=== PATIENT | female | born 1940 | race Caucasian/White ===

== ENCOUNTER 2018-11-27 23:24 | Inpatient (IN) | payer MEDICARE, BC, OTHER | END 2018-11-29 12:50 | disposition home or self-care (01) | LOC: WEST WING 23:24 → TELE-WESTW 23:50 | PROC: 0JH606Z Insertion of Pacemaker, Dual Chamber into Chest Subcutaneous Tissue and Fascia, Open Approach (ICD-10-PCS; principal; ~2018-11-27) | PROC: 02H63JZ Insertion of Pacemaker Lead into Right Atrium, Percutaneous Approach (ICD-10-PCS; ~2018-11-27) | PROC: 3E0102A Introduction of Anti-Infective Envelope into Subcutaneous Tissue, Open Approach (ICD-10-PCS; ~2018-11-27) | DX: I48.0 Paroxysmal atrial fibrillation (principal); I49.5 Sick sinus syndrome; R00.1 Bradycardia, unspecified; E78.5 Hyperlipidemia, unspecified; I10 Essential (primary) hypertension; E03.9 Hypothyroidism, unspecified ==

== ENCOUNTER → 2019-06-23 | Outpatient (CLI) | payer MEDICARE, BC ==
[~2019-06-23] VITALS: Ht 170.2 cm; Wt 89.8 kg
[~2019-06-23] MED LIST: ADENOSINE 75 MG in GIVE UN-DILUTED 0 ML IV ONE; ADENOSINE 90 MG/30 ML INJ IV ONE; ASCO-22 PO; ASPI-543 PO; CALC500C3 PO; CHOL10006 PO; LEVO75TA6 PO; MULT-927 PO; NIFE1TAB36 PO; OMEG1CAP68 PO; PRAV20TA3 PO
== END | disposition home or self-care (01) ==
LOC: Rad HDHVI 08:19
PROVIDERS: ATTEND Internal Medicine Cardiovascular Disease
DX: I08.8 Other rheumatic multiple valve diseases (principal); I48.91 Unspecified atrial fibrillation; I47.1 Supraventricular tachycardia; I10 Essential (primary) hypertension; E78.00 Pure hypercholesterolemia, unspecified; R06.02 Shortness of breath; R42 Dizziness and giddiness; Z95.1 Presence of aortocoronary bypass graft
CPT/HCPCS: 78452; 93005; 93306; 96374; 96375; A9500; J0153; 93880

== ENCOUNTER → 2020-06-16 | Outpatient (CLI) | payer MEDICARE, BC ==
[~2020-06-16] MED LIST changes: -ADENOSINE 75 MG in GIVE UN-DILUTED 0 ML IV ONE; -ADENOSINE 90 MG/30 ML INJ IV ONE
== END | disposition home or self-care (01) ==
LOC: Rad HDHVI 13:03
PROVIDERS: ATTEND Internal Medicine Cardiovascular Disease
DX: I51.7 Cardiomegaly (principal); I20.9 Angina pectoris, unspecified
CPT/HCPCS: 93306

== ENCOUNTER → 2021-04-14 | Outpatient (CLI) | payer MEDICARE, BC | END | disposition home or self-care (01) | LOC: Rad HDHVI 13:00 | PROVIDERS: ATTEND Internal Medicine Cardiovascular Disease | DX: I67.82 Cerebral ischemia (principal); I67.2 Cerebral atherosclerosis; G31.89 Other specified degenerative diseases of nervous system; R41.0 Disorientation, unspecified | CPT/HCPCS: 70450 ==

== ENCOUNTER → 2021-04-21 | Outpatient (CLI) | payer MEDICARE, BC | END | disposition home or self-care (01) | LOC: Rad HDHVI 14:31 | PROVIDERS: ATTEND Internal Medicine Cardiovascular Disease | DX: I08.1 Rheumatic disorders of both mitral and tricuspid valves (principal); R00.2 Palpitations; R07.89 Other chest pain | CPT/HCPCS: 93306 ==

== ENCOUNTER 2021-07-20 07:51 | Day surgery (SDC) | payer MEDICARE, BC ==
[~2021-07-20] VITALS: Ht 170.2 cm; Wt 94.3 kg
[~2021-07-20 07:51] MED LIST changes: -ASCO-22 PO; -ASPI-543 PO; +BIOF500T4 PO; +BIOT10004 PO; -CALC500C3 PO; +CHOL100040 PO; -CHOL10006 PO; +CYAN500L3 PO; -NIFE1TAB36 PO; +PANT40TA2 PO; +RIVA20TA PO; +SOTA80TA PO; +UBIQ100C6 PO; +[UNRECOGNIZED DRUG - CODE] PO
[2021-07-20] MEDS ORDERED: IOHEXOL 350 MG/ML 100ML IJ ONE ×2 (10:29→12:17)
[2021-07-20] MEDS ORDERED: SODIUM CHL 0.9% 0 ML ONE (10:29)
[2021-07-20] MEDS ORDERED: LIDOCAINE 2%HCL (LOCAL ANESTH.) INJ 20ML MDV ONE (10:29)
[2021-07-20] MEDS ORDERED: ANGIOMAX 250 MG VIAL IV ONE ×2 (10:29→12:10)
[2021-07-20] MEDS ORDERED: fentaNYL CITRATE 100 MCG/2 ML VL ONE (10:29)
[2021-07-20] MEDS ORDERED: MIDAZOLAM HCL 2MG/2ML 2ml VIAL (1mg/ml) ONE (10:29)
== END 2021-07-20 15:15 | disposition home or self-care (01) ==
LOC: CATH 07:51
PROVIDERS: ATTEND Internal Medicine Cardiovascular Disease
DX: R07.89 Other chest pain (principal); I49.5 Sick sinus syndrome; I11.9 Hypertensive heart disease without heart failure; E03.9 Hypothyroidism, unspecified; I48.0 Paroxysmal atrial fibrillation; Z95.0 Presence of cardiac pacemaker; Z90.710 Acquired absence of both cervix and uterus; Z88.0 Allergy status to penicillin; Z88.8 Allergy status to other drugs, medicaments and biological substances; Z20.822 Contact with and (suspected) exposure to COVID-19; Z80.42 Family history of malignant neoplasm of prostate; Z82.49 Family history of ischemic heart disease and other diseases of the circulatory system; Z80.8 Family history of malignant neoplasm of other organs or systems; Z82.61 Family history of arthritis; Z83.79 Family history of other diseases of the digestive system; Z79.890 Hormone replacement therapy
CPT/HCPCS: 75736; 93458; C1760; C1894; J1644; J2250; J3010; Q9967; U0003; 99152

== ENCOUNTER → 2022-03-09 | Outpatient (CLI) | payer MEDICARE, BC | END | disposition home or self-care (01) | LOC: Rad HDHVI 10:49 | PROVIDERS: ATTEND Internal Medicine Cardiovascular Disease | DX: I10 Essential (primary) hypertension (principal); R06.02 Shortness of breath | CPT/HCPCS: 93306 ==

== ENCOUNTER → 2022-07-05 | Outpatient (CLI) | payer MEDICARE, BC ==
[~2022-07-05] VITALS: Ht 170.2 cm; Wt 93.9 kg
[~2022-07-05] MED LIST changes: +ADENOSINE 79 MG in GIVE UN-DILUTED 0 ML IV ONE; +ADENOSINE 90 MG/30 ML INJ IV ONE
== END | disposition home or self-care (01) ==
LOC: Rad HDHVI 12:57
PROVIDERS: ATTEND Internal Medicine Cardiovascular Disease
DX: R00.2 Palpitations (principal); R06.02 Shortness of breath; R42 Dizziness and giddiness; I10 Essential (primary) hypertension; I48.91 Unspecified atrial fibrillation; E78.00 Pure hypercholesterolemia, unspecified; Z95.0 Presence of cardiac pacemaker
CPT/HCPCS: 78452; 93005; 96374; 96375; A9500; J0153

== ENCOUNTER → 2022-07-11 | Outpatient (CLI) | payer MEDICARE, BC ==
[~2022-07-11] MED LIST changes: -ADENOSINE 79 MG in GIVE UN-DILUTED 0 ML IV ONE; -ADENOSINE 90 MG/30 ML INJ IV ONE
== END | disposition home or self-care (01) ==
LOC: Rad HDHVI 09:55
PROVIDERS: ATTEND Internal Medicine Cardiovascular Disease
DX: I08.1 Rheumatic disorders of both mitral and tricuspid valves (principal); I11.9 Hypertensive heart disease without heart failure; R06.02 Shortness of breath
CPT/HCPCS: 93306

== ENCOUNTER → 2022-09-14 | Outpatient (CLI) | payer MEDICARE, BC ==
[~2022-09-14] VITALS: Ht 33 cm; Wt 0.5 kg
[~2022-09-14] MED LIST changes: +AMIODARONE HCL 150 MG in D5W 5% 100 ML IV ONE; +AMIODARONE HCL 200 MG TAB ONE; +AMIODARONE HCL 200 MG TAB PO ONE; -CYAN500L3 PO; +CYAN500L4 PO; +METOPROLOL SUCCINATE XL 50 MG TAB PO ONE
[2022-09-14 11:30] VITALS: BP 153/89
[2022-09-14 12:25] VITALS: BP 126/89
[2022-09-14 12:37] VITALS: BP 103/66
[2022-09-14 13:03] VITALS: BP 137/87
== END | disposition home or self-care (01) ==
LOC: CHF HDHVI 11:27
PROVIDERS: ATTEND Internal Medicine Cardiovascular Disease
DX: I48.0 Paroxysmal atrial fibrillation (principal); R00.0 Tachycardia, unspecified; R06.02 Shortness of breath; I11.9 Hypertensive heart disease without heart failure; E78.00 Pure hypercholesterolemia, unspecified; Z95.0 Presence of cardiac pacemaker
CPT/HCPCS: 96365; G0463; J0282; J7060

== ENCOUNTER 2022-12-13 06:45 | Day surgery (SDC) | payer MEDICARE, BC ==
[2022-12-11 13:56] LABS: Basophils # (auto) 0.1 10 ^3/uL (0-0.2); Eosinophils # (auto) 0.2 10 ^3/uL (0-0.8); Eosinophils % (auto) 2.4 % (0.0-7.0); Hematocrit 42.9 % (36.0-46.0); Hemoglobin 14.4 g/dL (12.2-16.2); Lymphocytes # (auto) 1.7 10 ^3/uL (0.4-5.4); Lymphocytes % (auto) 25.3 % (10.0-50.0); Mean Corpuscular Hemoglobin 31.9 pg (28.0-32.0); Mean Corpuscular Hgb Conc. 33.5 g/dL (32.0-36.0); Mean Corpuscular Volume 95.2 fL (80.0-100.0); Monocytes # (auto) 0.7 10 ^3/uL (0-1.3); Monocytes % (auto) 10.8 % (0.0-12.0); Neutrophils % (auto) 60.5 % (37.0-80.0); Red Blood Cells 4.51 10^6/uL (4.0-5.20); Red Cell Distribution Width 14.2 % (11.8-14.3); White Blood Cell 6.6 10^3/uL (4.4-10.8)
[2022-12-11 14:09] LABS: INR 1.14 (0.9-1.15); Partial Thromboplastin Time 28.9 SEC (24.5-34.5); Prothrombin Time 11.9 sec (9.3-11.8)
[2022-12-11 14:25] LABS: Chloride 105 mmol/L (98-107); Potassium 4.2 mmol/L (3.5-5.1); Sodium 138 mmol/L (136-145)
[2022-12-11 14:26] LABS: Anion Gap 3.3 (5-15); Carbon Dioxide 29.7 mmol/L (20-30)
[2022-12-11 14:27] LABS: Calcium 9.7 mg/dL (8.7-10.4)
[2022-12-11 14:31] LABS: BUN/Creatinine Ratio 15.7 (10.0-20.0); Blood Urea Nitrogen 13 mg/dL (9-23); Glucose 86 mg/dL (74-106)
[2022-12-13] VITALS (7 sets, daily range): BP systolic 126–145; BP diastolic 71–82; PULSE 70; RESP 12–16; O2SAT 90–95
[~2022-12-13] VITALS: Ht 167.6 cm; Wt 97.1 kg
[~2022-12-13 06:45] MED LIST changes: +AMIO200T33 PO; -AMIODARONE HCL 150 MG in D5W 5% 100 ML IV ONE; -AMIODARONE HCL 200 MG TAB ONE; -AMIODARONE HCL 200 MG TAB PO ONE; +DOCU-94 PO; +METO-289 PO; -METOPROLOL SUCCINATE XL 50 MG TAB PO ONE; +POM; -SOTA80TA PO
[2022-12-13] MEDS ORDERED: IOHEXOL 350 MG/ML 100ML IJ ONE ×2 (07:42→08:38)
[2022-12-13] MEDS ORDERED: LIDOCAINE 2%HCL (LOCAL ANESTH.) INJ 20ML MDV ONE (07:42)
[2022-12-13] MEDS ORDERED: MIDAZOLAM HCL 2MG/2ML 2ml VIAL (1mg/ml) ONE (08:05)
[2022-12-13] MEDS ORDERED: ANGIOMAX 250 MG VIAL IV ONE (08:05)
[2022-12-13] MEDS ORDERED: fentaNYL CITRATE 100 MCG/2 ML VL ONE (08:05)
[2022-12-13] MEDS ORDERED: SODIUM CHL 0.9% 50 ML ONE (08:05)
[2022-12-13] MEDS ORDERED: methylPREDNISolone SOD SUCC 125 MG/2 ML VL ONE (08:31)
[2022-12-13] MEDS ORDERED: NITROGLYCERIN 0.4MG/DOSE SPRAY 4.9GM ONE (08:33)
== END 2022-12-13 11:00 | disposition home or self-care (01) ==
LOC: CATH 06:45
PROVIDERS: ATTEND Internal Medicine Cardiovascular Disease
DX: R06.02 Shortness of breath (principal); R07.89 Other chest pain; I10 Essential (primary) hypertension; E78.5 Hyperlipidemia, unspecified; Z86.73 Personal history of transient ischemic attack (TIA), and cerebral infarction without residual deficits; I48.91 Unspecified atrial fibrillation; I49.5 Sick sinus syndrome; Z95.0 Presence of cardiac pacemaker; Z79.899 Other long term (current) drug therapy; Z79.01 Long term (current) use of anticoagulants; M19.90 Unspecified osteoarthritis, unspecified site
CPT/HCPCS: 36415; 80048; 85025; 85610; 85730; 93458; C1894; J1644; J2250; J2930; J3010; J7040; Q9967; 99152

== ENCOUNTER → 2023-06-24 | Outpatient (CLI) | payer MEDICARE, BC ==
[~2023-06-24] VITALS: Ht 170.2 cm; Wt 102.1 kg
[~2023-06-24] MED LIST changes: +ADENOSINE 86 MG in GIVE UN-DILUTED 0 ML IV ONE; +D5W 5% IV SCH; +DIPYRIDAMOLE (5MG/ML) 10 ML VIAL IV ONE; +DIPYRIDAMOLE IV SCH
== END | disposition home or self-care (01) ==
LOC: Rad HDHVI 08:12
PROVIDERS: ATTEND Internal Medicine Cardiovascular Disease
DX: R07.9 Chest pain, unspecified (principal); R00.2 Palpitations; I48.0 Paroxysmal atrial fibrillation; I10 Essential (primary) hypertension; I49.5 Sick sinus syndrome; I25.10 Atherosclerotic heart disease of native coronary artery without angina pectoris; E78.00 Pure hypercholesterolemia, unspecified; Z95.0 Presence of cardiac pacemaker
CPT/HCPCS: 78452; 93005; 96374; 96375; A9500; J1245

== ENCOUNTER → 2024-02-24 | Outpatient (CLI) | payer MEDICARE, BC ==
[~2024-02-24] MED LIST changes: -ADENOSINE 86 MG in GIVE UN-DILUTED 0 ML IV ONE; -D5W 5% IV SCH; -DIPYRIDAMOLE (5MG/ML) 10 ML VIAL IV ONE; -DIPYRIDAMOLE IV SCH
== END | disposition home or self-care (01) ==
LOC: Rad HDHVI 09:46
PROVIDERS: ATTEND Internal Medicine Cardiovascular Disease
DX: I10 Essential (primary) hypertension (principal)
CPT/HCPCS: 93880

== ENCOUNTER → 2024-05-29 | Outpatient (CLI) | payer MEDICARE, BC | END | disposition home or self-care (01) | LOC: Rad HDHVI 12:52 | PROVIDERS: ATTEND Internal Medicine Cardiovascular Disease | DX: I48.91 Unspecified atrial fibrillation (principal) | CPT/HCPCS: 93306 ==

== ENCOUNTER → 2024-07-09 | Outpatient (CLI) | payer MEDICARE, BC ==
[~2024-07-09] MED LIST changes: +ASCO500C49 PO; +CHOL25CH3 PO; +LEVO88TA4 PO; +MILK1000 PO; +SOTA120T39 PO; +VALS40TA2 PO; +[UNRECOGNIZED DRUG - CODE] PO; +[UNRECOGNIZED DRUG - CODE] PO
--- NOTE | 2024-07-09 12:01 | DVH ---
EXAM: XY CHEST TWO VIEWS ROUTINE CLINICAL HISTORY: Pain. COMPARISON: XY CHEST TWO VIEWS ROUTINE on DOS: 12/11/22, CXR2 on DOS: 07/17/21, CHEST TWO VIEWS ROUTINE on DOS: 07/17/21 TECHNIQUE: Frontal and lateral view of the chest was obtained FINDINGS: Lines and Tubes: Cardiac pacemaker projects over left chest wall. Lungs: No focal consolidation. Pleura: No effusion. No pneumothorax. Cardiomediastinal contours: Unremarkable. Bones: No acute osseous abnormality. Atherosclerotic vascular calcifications of the thoracic aorta ar e noted. IMPRESSION: No acute cardiopulmonary disease.
== END | disposition home or self-care (01) ==
LOC: Rad HDHVI 11:08
PROVIDERS: ATTEND Internal Medicine Cardiovascular Disease
DX: Z01.818 Encounter for other preprocedural examination (principal); I70.0 Atherosclerosis of aorta
CPT/HCPCS: 71046

== ENCOUNTER 2024-07-14 11:08 | Day surgery (SDC) | payer MEDICARE, BC ==
[2024-07-09 13:17] LABS: Basophils # (auto) 0 10 ^3/uL (0-0.2); Basophils % (auto) 0.7 % (0.0-2.0); Eosinophils # (auto) 0.2 10 ^3/uL (0-0.8); Eosinophils % (auto) 3.4 % (0.0-7.0); Hemoglobin 13.7 g/dL (12.2-16.2); Lymphocytes # (auto) 1.6 10 ^3/uL (0.4-5.4); Lymphocytes % (auto) 24.7 % (10.0-50.0); Mean Corpuscular Hgb Conc. 33.5 g/dL (32.0-36.0); Mean Corpuscular Volume 95.5 fL (80.0-100.0); Monocytes # (auto) 0.7 10 ^3/uL (0-1.3); Monocytes % (auto) 11.5 % (0.0-12.0); Neutrophils # (auto) 3.8 10 ^3/uL (1.6-8.6); Neutrophils % (auto) 59.7 % (37.0-80.0); Platelet Count (auto) 185 10^3/uL (140-450); Red Cell Distribution Width 14.2 % (11.8-14.3); White Blood Cell 6.3 10^3/uL (4.4-10.8)
[2024-07-09 13:29] LABS: Chloride 107 mmol/L (98-107); Potassium 4.4 mmol/L (3.5-5.1); Sodium 137 mmol/L (136-145)
[2024-07-09 13:30] LABS: Anion Gap 4 (5-15); Carbon Dioxide 26 mmol/L (20-31)
[2024-07-09 13:31] LABS: Calcium 10.2 mg/dL (8.7-10.4)
[2024-07-09 13:32] LABS: INR 1.21 (0.9-1.15); Partial Thromboplastin Time 29.6 SEC (24.5-34.5); Prothrombin Time 12.6 sec (9.3-11.8)
[2024-07-09 13:35] LABS: BUN/Creatinine Ratio 25.6 (10.0-20.0); Glucose 92 mg/dL (74-106)
[2024-07-09 13:38] LABS: Blood Urea Nitrogen 23 mg/dL (9-23)
[~2024-07-14] VITALS: Ht 170.2 cm; Wt 99.8 kg
[~2024-07-14 11:08] MED LIST changes: -AMIO200T33 PO; -DOCU-94 PO; -LEVO75TA6 PO; -METO-289 PO; -PRAV20TA3 PO; -UBIQ100C6 PO
[2024-07-14] MEDS ORDERED: MIDAZOLAM HCL 2MG/2ML 2ml VIAL (1mg/ml) IV ONE (11:30)
--- NOTE | 2024-07-14 13:17 | DVHHP ---
ADMIT DATE: 07/14/2024 HISTORY OF PRESENT ILLNESS: The patient is 83, with atrial fibrillation with rapid ventricular response. Sick sinus syndrome, status post permanent pacemaker implantation. The patient is feeling extremely lethargic and fatigued because of the AFib without any atrial kick. The patient is becoming extremely fatigued. Multiple drugs have been implemented including amiodarone. The patient is now scheduled to undergo cardioversion. Risks and benefits were explained to the patient. The patient understands and agrees. Denies any fever, chills, melena, hematochezia, hematemesis or hemoptysis. Denies any syncopal episode. Denies any trauma, fever or chills. No bleeding diathesis. No hematemesis, hemoptysis. PHYSICAL EXAMINATION: VITAL SIGNS: Blood pressure is 134/80, pulse 80 and irregular, O2 saturation 98% on room air. HEENT: Pupils are reactive. Funduscopic exam shows no AV nicking, no exudates, no papilledema. No JVD appreciated. Carotid pulses are 2+ symmetrical. No cervical adenopathy. No supraclavicular adenopathy. PULMONARY: Clear to auscultation. CARDIOVASCULAR: Irregularly irregular. ABDOMEN: Obese. Unable to appreciate an organomegaly. EXTREMITIES: 1+ pulses. ASSESSMENT AND PLAN: Thus, the patient with atrial fibrillation causing her to be extremely lethargic and fatigued. The patient with sick sinus syndrome, status post permanent pacemaker implantation. RECOMMENDATIONS: At this time, the patient will undergo cardioversion. We will make further recommendations after the cardioversion. Gustavo Gómez MD SA/YONY/MALINDA TID: [id number] RECEIPT: [id number]
--- NOTE | 2024-07-14 14:43 | ECG ---
[facility] Test Date: 2024-07-14 Test Time: 13:14:42 Pat Name: CAMDEN BAILEY Department: Room: Gender: F Manager Pe: LS : 1940 Requested By: [place] NAVARRO Order Number: [id number] Reading MD: Delvis Sotelo Measurements Intervals [place] Rate: 70 P: 0 NM: 234 QRS: -8 QRSD: 78 T: -18 QT: 394 QTc: 425 Interpretive Statements Sinus rhythm with 1st degree AV block Nonspecific T wave abnormality Electronically Signed On 07-16-2024 20:24:29 PDT by Delvis Sotelo Please click the below link to view image of tracing.
--- NOTE | 2024-08-13 18:31 | DVHOP ---
DATE OF SURGERY: 07/14/2024 PROCEDURE PERFORMED: Cardioversion. INDICATIONS: The patient presented with severe shortness of breath, now with atrial fibrillation with rapid ventricular response. She has been maximized for medical management. She is on amiodarone. Despite being on amiodarone, she is continuing to be in AFib with rapid ventricular response. The patient will undergo electric cardioversion and we will make further recommendation after the cardioversion. DESCRIPTION OF PROCEDURE: The patient was given adequate conscious sedation, using a biphasic 200 joule shock was then delivered direct current. The patient converted from atrial fibrillation at a rate of 160 to sinus rhythm at 75. Single shock was delivered. There were no complications. The patient tolerated the procedure well. CONCLUSION: The patient had successful cardioversion from atrial fibrillation to sinus rhythm. Gustavo Gómez MD SA/BONNIE/MALINDA TID: [id number] RECEIPT: [id number]
== END 2024-07-14 14:16 | disposition home or self-care (01) ==
LOC: CATH 11:08
PROVIDERS: ATTEND Internal Medicine Cardiovascular Disease
DX: I48.91 Unspecified atrial fibrillation (principal); I44.0 Atrioventricular block, first degree; I49.5 Sick sinus syndrome; Z79.890 Hormone replacement therapy; Z79.899 Other long term (current) drug therapy; Z90.710 Acquired absence of both cervix and uterus; Z95.0 Presence of cardiac pacemaker; Z88.0 Allergy status to penicillin; Z88.1 Allergy status to other antibiotic agents; Z88.8 Allergy status to other drugs, medicaments and biological substances; Z80.8 Family history of malignant neoplasm of other organs or systems; Z82.49 Family history of ischemic heart disease and other diseases of the circulatory system; Z83.79 Family history of other diseases of the digestive system; Z82.61 Family history of arthritis
CPT/HCPCS: 36415; 80048; 85025; 85610; 85730; 92960; 93005; J2250; J7030; 99152

== ENCOUNTER 2024-08-21 11:09 | Day surgery (SDC) | payer MEDICARE, BC ==
[2024-08-21] MEDS ORDERED: MIDAZOLAM HCL 2MG/2ML 2ml VIAL (1mg/ml) IV ONE (12:00)
[2024-08-21 12:25] LABS: Basophils # (auto) 0.1 10 ^3/uL (0-0.2); Basophils % (auto) 1.2 % (0.0-2.0); Eosinophils # (auto) 0.2 10 ^3/uL (0-0.8); Eosinophils % (auto) 3.2 % (0.0-7.0); Hematocrit 38.6 % (36.0-46.0); Lymphocytes # (auto) 1.2 10 ^3/uL (0.4-5.4); Lymphocytes % (auto) 15.6 % (10.0-50.0); Mean Corpuscular Hemoglobin 31.9 pg (28.0-32.0); Mean Corpuscular Hgb Conc. 33.8 g/dL (32.0-36.0); Mean Corpuscular Volume 94.5 fL (80.0-100.0); Monocytes # (auto) 0.7 10 ^3/uL (0-1.3); Monocytes % (auto) 8.6 % (0.0-12.0); Neutrophils # (auto) 5.4 10 ^3/uL (1.6-8.6); Neutrophils % (auto) 71.4 % (37.0-80.0); Nucleated Red Blood Cells % 0.1 %; Platelet Count (auto) 201 10^3/uL (140-450); Red Blood Cells 4.09 10^6/uL (4.0-5.20); White Blood Cell 7.6 10^3/uL (4.4-10.8)
[2024-08-21 12:29] LABS: Chloride 106 mmol/L (98-107); Potassium 4.5 mmol/L (3.5-5.1); Sodium 139 mmol/L (136-145)
[2024-08-21 12:30] LABS: Anion Gap 7 (5-15); Calcium 10.1 mg/dL (8.7-10.4); Carbon Dioxide 26 mmol/L (20-31)
[2024-08-21 12:34] LABS: INR 1.43 (0.9-1.15); Partial Thromboplastin Time 30.8 SEC (24.5-34.5); Prothrombin Time 14.6 sec (9.3-11.8)
[2024-08-21 12:36] LABS: BUN/Creatinine Ratio 17.1 (10.0-20.0); Blood Urea Nitrogen 21 mg/dL (9-23); Glucose 118 mg/dL (74-106)
--- NOTE | 2024-08-22 11:45 | ECG ---
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
== END 2024-08-21 12:40 | disposition home or self-care (01) ==
LOC: CATH 11:09
PROVIDERS: ATTEND Internal Medicine Cardiovascular Disease
DX: R07.89 Other chest pain (principal); Z53.8 Procedure and treatment not carried out for other reasons; R06.02 Shortness of breath; I10 Essential (primary) hypertension
CPT/HCPCS: 36415; 80048; 85025; 85610; 85730; 93005